=== PATIENT | male | born 1995 | race Caucasian/White ===

== ENCOUNTER 2017-04-05 21:35 | Emergency (ER) | payer BC ==
[2017-04-05] MEDS ORDERED: Lidocaine 1% 20 ML MDV INJECT ONE (22:20)
[2017-04-05] MEDS ORDERED: Lidocaine 1% 20 ML MDV ONE (22:20)
--- NOTE | 2017-04-05 22:59 | EDM.PDOC ---
ED HPI GENERAL MEDICAL PROBLEM - General Chief Complaint: Skin Complaint Stated Complaint: PT HAS CYSTS UNDERNEATH RIGHT ARM Time Seen by Provider: 04/05/17 22:15 Source of Information: Reports: Patient History Limitations: Reports: No Limitations - History of Present Illness INITIAL COMMENTS - FREE TEXT/NARRATIVE: HISTORY AND PHYSICAL: History of present illness: [3-year-old male with a history of prior axillary abscess is now presents emergency department complaining of an axillary abscess 1 week. Patient states he has a swollen mass in his right armpit. It's painful and red and he thinks possibly needs to be drained out of it. He denies fevers chills sweats or shaking chills. Is able to use his arm normally. Patient feels well and decides local tenderness. He describes the findings are identical to multiple previous episodes where he required drainage and then enjoyed spontaneous wound resolution thereafter. Review of systems: As per history of present illness and below otherwise all systems reviewed and negative. Past medical history: As per history of present illness and as reviewed below otherwise noncontributory. Surgical history: As per history of present illness and as reviewed below otherwise noncontributory. Social history: No reported history of drug or alcohol abuse. Family history: As per history of present illness and as reviewed below otherwise noncontributory. Physical exam: Well. Patient no acute distress 3 cm x 2 70 or abscess right axilla superficial and subcutaneous. Mild erythema and warmth fluctuance of the mass however no surrounding crepitus. Normal painless range of motion of the arm. Soft compartments of the upper arm and neurovascularly intact distally. HEENT: Normocephalic, atraumatic, pupils normal and symmetrical, supple neck, no meningismus, normal color Lungs: Normal and symmetrical chest wall excursion bilateral with no tachypnea or increased work of breathing, grossly normal chest exam Heart: No tachycardia in triage Abdomen: Normal-appearing, nondistended, no visible mass or asymmetry Pelvis: Normal-appearing Genitourinary: Deferred Rectal exam: Deferred Extremities: Atraumatic, normal use and range of motion, no visible evidence of gross neurovascular compromise Neuro: Awake, alert, oriented. Normal and appropriate mental status. Cranial nerves grossly unremarkable. Motor function normal. Nonfocal neurologic exam. Diagnostics: [] Therapeutics: [Sedation and drainage of abscess by TED Lewis. Patient lying on his back on the bed. Hand positioned behind his head. Sterile Betadine prep and 1.5 cm incision made parallel to the long axis of the humerus in the fluctuant mass with positive purulent drainage. Wound probed with hemostat to ensure communication drainage encouraged. Packing placed one quarter-inch iodoform. Patient tolerated well without complication. Sterile dressing applied] Impression: [] Plan: [Uncomplicated abscess. No signs of systemic illness. Incision and drainage performed see note. Patient were to finish Doxy as prescribed. Ibuprofen and Tylenol as needed. Follow-up PCP 2 days for wound check and he will return for signs of worsening infection or systemic illness. No further workup or treatment indicated patient agrees with outpatient follow-up and strict return precautions given] Definitive disposition and diagnosis as appropriate pending reevaluation and review of above. right armpit Pain Score (Numeric/FACES): 7 - Related Data Allergies Allergy/AdvReac Type Severity Reaction Status Date / Time gabapentin Allergy throat Verified 04/05/17 21:44 swelling crustaceans Allergy Hives Uncoded 04/05/17 21:44 Home Meds: Home Meds Doxycycline [Vibramycin] 100 mg PO Q12HR #20 cap 04/05/17 [Rx] Past Medical History HEENT History: Reports: None Cardiovascular History: Reports: None Musculoskeletal History: Reports: None Neurological History: Reports: None Psychiatric History: Reports: None Endocrine/Metabolic History: Reports: None Dermatologic History: Reports: None - Infectious Disease History Infectious Disease History: Reports: None - Past Surgical History HEENT Surgical History: Reports: None Respiratory Surgical History: Reports: Pleurodesis GI Surgical History: Reports: Appendectomy Endocrine Surgical History: Reports: None Neurological Surgical History: Reports: None Musculoskeletal Surgical History: Reports: None Social & Family History - Tobacco Use Smoking Status *Q: Current Every Day Smoker Years of Tobacco use: 2 Packs/Tins Daily: 0.5 ED ROS GENERAL - Review of Systems Review Of Systems: See Below (History of present illness) ED EXAM, SKIN/RASH Exam: See Below (History of present illness) Course - Vital Signs Last Recorded V/S: Last Vital Signs Temp 36.8 C 04/05/17 23:05 Pulse 86 04/05/17 23:05 Resp 17 04/05/17 23:05 BP 117/79 04/05/17 23:05 Pulse Ox 97 04/05/17 23:05 - Orders/Labs/Meds Meds: Medications Discontinued Medications Generic Name Dose Route Start Last Admin Trade Name Sarah PRN Reason Stop Dose Admin Hydrocodone Bitart/Acetaminophen 1 tab 04/05/17 23:00 04/05/17 23:08 [place] 325-5 Mg PO 04/05/17 23:01 1 tab ONETIME ONE Administration Doxycycline Hyclate 100 mg 04/05/17 23:00 04/05/17 23:08 Vibramycin PO 04/05/17 23:01 100 mg ONETIME ONE Administration Lidocaine HCl 20 ml 04/05/17 22:20 04/05/17 22:51 Xylocaine 1% INJECT 04/05/17 22:21 20 ml ONETIME ONE Administration Lidocaine HCl Confirm 04/05/17 22:20 04/05/17 22:24 Xylocaine 1% Administered 04/05/17 22:21 Not Given Dose 20 ml .ROUTE .STK-MED ONE Departure - Departure Time of Disposition: 22:55 Disposition: Home, Self-Care 01 Condition: Good Clinical Impression: Axillary abscess, Abscess - Discharge Information Prescriptions: Doxycycline [Vibramycin] 100 mg PO Q12HR #20 cap Instructions: Abscess Referrals: PCP,None [Primary Care Provider] - Forms: ED Department Discharge Additional Instructions: The abscess in your right axilla has been drained and packing has been placed. Change dressing several times a day. Irrigated the wound when you shower and encourage drainage. PET dry and apply a clean dressing. Repeat until healed. The packing placed is likely to fall out however if he follow the above instructions he will keep the wound open draining spontaneously and healing by "secondary intention," which means from the inside out. Finish doxycycline as prescribed and follow-up with your doctor in 2 days for wound check. Return for signs of worsening infection, fevers, or other signs of worsening illness
[2017-04-05] MEDS ORDERED: Doxycycline 100 MG Cap PO ONE (23:00)
[2017-04-05] MEDS ORDERED: Acetaminophen/HYDROcodone 325-5 MG Tab PO ONE (23:00)
[2017-04-05 23:06] VITALS: BP 117/79
== END 2017-04-05 23:11 | disposition home or self-care (01) ==
LOC: MW.ED 21:35
DX: L02.411 Cutaneous abscess of right axilla (principal); F17.210 Nicotine dependence, cigarettes, uncomplicated; Z88.8 Allergy status to other drugs, medicaments and biological substances
CPT/HCPCS: 10061; 99282; A9270; 99284